=== PATIENT | female | born 1970 | race Asian ===

== ENCOUNTER 2017-08-15 04:06 | Inpatient (IN) | payer MEDICAID ==
[~2017-08-15] VITALS: Ht 165.1 cm; Wt 65.8 kg
[2017-08-15] MEDS ORDERED: diphenhydrAMINE HCL 50 MG/ML VIAL ONE (04:12)
[2017-08-15] MEDS ORDERED: HALOPERIDOL LACTATE INJ 5 MG/ML VIAL ONE (04:12)
[2017-08-15] MEDS ORDERED: LORAZEPAM INJ 2 MG/ML VIAL ONE ×2 (04:12→05:23)
[2017-08-15] MEDS ORDERED: LORAZEPAM INJ 2 MG/ML VIAL IM ONE (04:30)
[2017-08-15] MEDS ORDERED: diphenhydrAMINE HCL 50 MG/ML VIAL IM ONE (04:30)
[2017-08-15] MEDS ORDERED: HALOPERIDOL LACTATE INJ 5 MG/ML VIAL IM ONE (04:30)
--- NOTE | 2017-08-15 04:30 | NUR ---
PT TO ER BED 6. PT BIB [facility] AND [employer] FOR "BIZARRE BEHAVIOR" PER EMS. PT PLACED ON STEAM SERVICE INSPECTOR. VSS/RESP EVEN UNLABORED/NAD NOTED/SKIN WARM AND DRY. MD AT BEDSIDE FOR EVAL.
--- NOTE | 2017-08-15 04:35 | NUR ---
18G IV TO R AC USING ASEPTIC TECH, BLOOD HANDED OVER TO THE LAB AT BEDSIDE.
[2017-08-15 04:48] LABS: BASOPHILS % (AUTO) 0.2 % (0.0-2.0); EOSINOPHILS % (AUTO) 0.1 % (0.0-6.0); HEMATOCRIT 21 % (33-45); HEMOGLOBIN 7.2 g/dL (11.5-14.8); LYMPHOCYTES # (AUTO) 1.2 /CMM (0.8-4.8); LYMPHOCYTES % (AUTO) 14.1 % (20.0-44.0); MEAN CORPUSCULAR HEMOGLOBIN 29 PG (26.0-33.0); MEAN CORPUSCULAR HGB CONC 35 g/dl (31.0-36.0); MEAN CORPUSCULAR VOLUME 83 fL (82-100); MONOCYTES # (AUTO) 0.5 /CMM (0.1-1.30); MONOCYTES % (AUTO) 6.3 % (2.0-12.0); NEUTROPHILS # (AUTO) 6.5 /CMM (1.8-8.9); NEUTROPHILS % (AUTO) 79.3 % (43.0-81.0); PLATELET COUNT (AUTO) 403 /CMM (150-450); RDW COEFFICIENT OF VARIATION 16.5 (11.5-15.0); RED BLOOD CELL COUNT(AUTO) 2.47 MIL/uL (4.0-5.2); WHITE BLOOD COUNT (AUTO) 8.2 K/uL (4.3-11.0)
--- NOTE | 2017-08-15 05:00 | NUR ---
AT BEDSIDE SPEAKING WITH THE FAMILY. SONU.
[2017-08-15 05:04] LABS: ALANINE AMINOTRANSFERASE 36 U/L (12-78); ALBUMIN 3.9 g/dL (3.4-5.0); ALCOHOL, BLOOD < 3 mg/dL (0-0); ALKALINE PHOSPHATASE 47 U/L (46-116); ASPARTATE AMINOTRANSFERASE 32 U/L (15-37); BILIRUBIN,TOTAL 0.1 mg/dL (0.2-1.0); CARBON DIOXIDE 21 mmol/L (21-32); CHLORIDE 103 mmol/L (98-107); CREATININE 0.9 mg/dL (0.6-1.3); GLUCOSE 183 mg/dL (74-106); SODIUM SERUM 140 mmol/L (136-145); TOTAL PROTEIN, SERUM 7.4 g/dL (6.4-8.2); UREA NITROGEN, BLOOD 11 mg/dL (7-18)
[2017-08-15 05:05] LABS: INR 0.93 (0.87-1.13); PROTHROMBIN TIME 9.7 SECS (9.5-12.7); TROPONIN I 0.067 ng/mL (0.00-0.056)
[2017-08-15 05:06] LABS: ACETAMINOPHEN 0 ug/ml (10-30); SALICYLATE 1.3 mg/dL (2.8-20.0); SERUM AMMONIA < 10 umol/L (11-32)
[2017-08-15 05:11] LABS: CREATINE KINASE, TOTAL 288 U/L (26-192); THYROID STIMULATING HORMONE 1.641 uIU/mL (0.358-3.74)
--- NOTE | 2017-08-15 05:27 | NUR ---
ATIVAN 1MG GIVEN AT THIS TIME PER DR JAIME VERBAL ORDERS.
[2017-08-15] MEDS ORDERED: IV NS 0.9% 1,000 ML BAG IV ONE ×2 (05:30→09:00)
[2017-08-15] MEDS ORDERED: ASPIRIN 300 MG/SUPP.RECT RC ONE ×2 (05:30→05:52)
[2017-08-15] MEDS ORDERED: LORAZEPAM INJ 2 MG/ML VIAL IV ONE ×2 (05:30→07:30)
[2017-08-15 05:44] LABS: CREATINE KINASE MB 1.3 ng/mL (0-3.6)
--- NOTE | 2017-08-15 06:00 | NUR ---
SECOND ATIVAN 1MG GIVEN SLOW IVP PER DR JAIME'S VEBAL ORDER.
[2017-08-15 06:01] LABS: APPEARANCE,URINE CLEAR (CLEAR); BILIRUBIN,URINE NEGATIVE (NEGATIVE); BLOOD, URINE TRACE-INTA Ery/uL (NEGATIVE); KETONES,URINE TRACE (NEGATIVE); LEUKOCYTE ESTERASE ,URINE NEGATIVE (NEGATIVE); NITRITE, URINE NEGATIVE (NEGATIVE); PROTEIN,URINE NEGATIVE (NEGATIVE); UGLUCOSE NEGATIVE (NEGATIVE); UROBILINOGEN,URINE 0.2 EU/dL (0.2)
[2017-08-15 06:04] LABS: COLOR,URINE OTHER (YELLOW)
[2017-08-15 06:15] LABS: BACTERIA,URINE Few /HPF (None Seen); WBC,URINE 0-2 /HPF (0-3)
[2017-08-15 06:16] LABS: SQUAMOUS EPITHELIAL CELL,UR Few /HPF (None Seen)
--- NOTE | 2017-08-15 06:48 | NUR ---
PT RESTING QUIETLY. VSS/RESP EVEN UNLABORED. FAMILY AT BEDSIDE.
--- NOTE | 2017-08-15 07:30 | NUR ---
RECEIVED REPORT FOR MARCELL.
[2017-08-15] MEDS: POTASSIUM CL. PREMIX PERIPHER. 50 ML IV SCH ×2 (08:05→09:05)
[2017-08-15] MEDS ORDERED: Z GUARD REMEDY 2 OZ OINT TP PRN (09:00)
[2017-08-15] MEDS ORDERED: ONDANSETRON HCL/PF 4 MG/2 ML VIAL IVP PRN (09:00)
[2017-08-15] MEDS ORDERED: MAGNESIUM HYDROXIDE 30 ML UDC PO PRN (09:00)
[2017-08-15] MEDS ORDERED: HYDROCODONE/APAP 5/325MG 1 EACH TABLET PO PRN (09:00)
[2017-08-15] MEDS ORDERED: ACETAMINOPHEN 325 MG TABLET PO PRN (09:00)
[2017-08-15] MEDS ORDERED: MAG HYDROX/AL HYDROX/SIMETH 30 ML UDC PO PRN (09:00)
[2017-08-15] MEDS ORDERED: ZOLPIDEM TARTRATE 5 MG TABLET PO PRN (09:00)
[2017-08-15] MEDS ORDERED: CALC500T51 PO (09:44)
[2017-08-15] MEDS ORDERED: MIRT15TA7 PO (09:44)
[2017-08-15] MEDS ORDERED: LOSA1TAB39 PO (09:44)
[2017-08-15] MEDS ORDERED: AMLO5TAB2 PO (09:44)
[2017-08-15] MEDS ORDERED: ASCO500T9 PO (09:44)
[2017-08-15] MEDS ORDERED: FERR-58 PO (09:44)
[2017-08-15] MEDS ORDERED: CYAN500T4 PO (09:44)
--- NOTE | 2017-08-15 10:15 | NUR ---
3RD BAG OF POTASSIUM ADMINISTERED ON RAC, 18 G. INFUSING ON TRANSFER TO FLOOR.
--- NOTE | 2017-08-15 10:32 | NUR ---
REPORT GIVEN TO RN, AFSATU FOR MARCELL UPON ADMISSION.
--- NOTE | 2017-08-15 10:45 | NUR ---
PATIENT TRANSPORTED TO [facility] VIA ACLS PROTOCOL FOR ADMISSION. RN, AFSATU TO PROVIDE MARCELL.
--- NOTE | 2017-08-15 11:10 | NUR ---
PROCUREMENT CLERK OPENING NOTES RECEIVED PT FROM ER NURSE IN STABLE CONDITION. PT IS ASLEEP AT THE MOMENT A RESULT OF THE MEDICATIONS GIVEN IN THE ER. AT BEDSIDE. TELE LEADS PLACED. PT IS SR SINUS TACH ON THE MONITOR WITH A CURRENT HR OF 107. IV NOTED TO BE PATENT AND INTACT. WILL CONTINUE IV POTASSIUM INFUSION. BED IN LOW LOCKED POSITION, SIDE RAILS UP X3, CALL LIGHT WITHIN REACH. BED ALARM ON. WILL CONTINUE TO MONITOR.
[2017-08-15] MEDS: IV NS 0.9% 1,000 ML IV PRN (11:38)
[2017-08-15] MEDS: ENOXAPARIN SODIUM 40 MG/0.4 ML DISP.SYRIN SQ SCH (11:39)
[2017-08-15 12:58] VITALS: BP 99/72
[2017-08-15 16:00] VITALS: BP 100/66
--- NOTE | 2017-08-15 19:01 | NUR ---
RESTAURANT LINE COOK CLOSING NOTES PT REMAINS STABLE SINCE ADMISSION. ALL NEEDS MET DURING SHIFT AND ORDERS CARRIED OUT ACCORDINGLY. PT IS RESPONSIVE TO TOUCH AND IS ABLE TO STATE WHERE SHE IS AND HER NAME. SHE IS NON AGGRESSIVE AT THE MOMENT AND REMAINS CALM. FAMILY REMAINS AT BEDSIDE. WILL ENDORSE TO NIGHTSHIFT NURSE FOR MARCELL
--- NOTE | 2017-08-15 19:15 | NUR ---
TRANSPORTATION CONSULTANT OPENING NOTES RECEIVED PT ASLEEP. SON AT BEDSIDE. PT IS ASLEEP AT THIS TIME. PT APPEARS TO BE LETHARGIC. PT ON TELE MONITOR. WILL CONTINUE TO MONITOR PT. PT HAS IV AND IS PATENT AND INTACT. FLUIDS ARE BEING INFUSED WITH NS AT 75ML/HR. CALL LIGHT WITHIN PT'S REACH. BED KEPT IN LOW, LOCKED POSITION, AND SIDE RAILS X 2UP. WILL CONTINUE TO MONITOR PT.
[2017-08-15 20:00] VITALS: BP 107/66
[2017-08-15 21:00] VITALS: BP 156/66
[2017-08-16] VITALS (16 sets, daily range): BP systolic 91–138; BP diastolic 52–84
[2017-08-16] MEDS: IV NS 0.9% 1,000 ML IV PRN (00:43)
--- NOTE | 2017-08-16 04:30 | NUR ---
MUMTAZ SALINAS NOTES: R AC #20G WAS LEAKING. NEW IV STARTED ON L FOREARM #22G. Addendum: 08/16/17 at 0446 by MICHEL COATS RN THIS DOES NOT APPLY TO THIS PT. WRONG CHARTING. PLEASE DISREGARD.
--- NOTE | 2017-08-16 06:53 | NUR ---
HELPER DRIVER CLOSING NOTES: ALL NEEDS WERE ATTENDED AND ANTICIPATED FOR. PT ASLEEP AT BED AT THIS TIME. PT STILL APPEARS TO BE LETHARGIC. SON AT BEDSIDE. PT ON TELE MONITOR. READING SHOWS SR 97. PT HAS IV AND IS PATENT AND INTACT. FLUIDS ARE BEING INFUSED WITH NS AT 75ML/HR. CALL LIGHT WITHIN PT'S REACH. BED KEPT IN LOW, LOCKED POSITION, AND SIDE RAILS X 2UP. WILL ENDORSE TO AM NURSE FOR MARCELL.
[2017-08-16 07:26] LABS: CALCIUM, SERUM 7.8 mg/dL (8.5-10.1); CREATININE 0.6 mg/dL (0.6-1.3); MAGNESIUM 2.1 mg/dL (1.8-2.4); PHOSPHORUS 2.9 mg/dL (2.5-4.9); POTASSIUM 3.4 mmol/L (3.5-5.1)
--- NOTE | 2017-08-16 08:15 | NUR ---
INFORMATION BROKER NOTES PATIENT IN BED, AWAKE, A/O X2. SINUS RHYTHM HR 96 ON THE TELE MONITOR. ON ROOM AIR, TOLERATING WELL, NO SOB. IVC IN RIGHT AC G 18 PATENT AND INTACT, IVF NS INFUSING AT 75ML/HR. CALL LIGHT WITHIN REACH. WILL CONT TO MONITOR.
[2017-08-16] MEDS: ENOXAPARIN SODIUM 40 MG/0.4 ML DISP.SYRIN SQ SCH (10:14)
[2017-08-16] MEDS ORDERED: POTASSIUM CHLORIDE 20 MEQ TAB.PRT.SR PO SCH (11:30)
[2017-08-16 12:18] LABS: BASOPHILS % (AUTO) 0.4 % (0.0-2.0); EOSINOPHILS % (AUTO) 0.3 % (0.0-6.0); LYMPHOCYTES # (AUTO) 1.8 /CMM (0.8-4.8); LYMPHOCYTES % (AUTO) 22.6 % (20.0-44.0); MEAN CORPUSCULAR HEMOGLOBIN 28 PG (26.0-33.0); MEAN CORPUSCULAR HGB CONC 33 g/dl (31.0-36.0); MEAN CORPUSCULAR VOLUME 85 fL (82-100); MONOCYTES # (AUTO) 0.6 /CMM (0.1-1.30); MONOCYTES % (AUTO) 7.8 % (2.0-12.0); NEUTROPHILS # (AUTO) 5.7 /CMM (1.8-8.9); NEUTROPHILS % (AUTO) 68.9 % (43.0-81.0); PLATELET COUNT (AUTO) 297 /CMM (150-450); RDW COEFFICIENT OF VARIATION 16.8 (11.5-15.0); RED BLOOD CELL COUNT(AUTO) 2.15 MIL/uL (4.0-5.2); WHITE BLOOD COUNT (AUTO) 8.1 K/uL (4.3-11.0)
[2017-08-16 12:22] LABS: HEMATOCRIT 18 % (33-45)
[2017-08-16 12:48] LABS: LYMPHOCYTES % (MANUAL) 22 % (16-48); MONOCYTES % (MANUAL) 8 % (0-11.0); NEUTROPHILS % (MANUAL) 70 (42-76)
[2017-08-16] MEDS: ASCORBIC ACID 500 MG TABLET PO SCH (16:36)
[2017-08-16] MEDS: CALCIUM CARBONATE (1250) 500 MG TABLET PO SCH (16:36)
--- NOTE | 2017-08-16 18:35 | NUR ---
VS TAKEN AND RECORDED, STARTED ON BLOOD TRANSFUSION FIRST UNIT PRBC, WILL MONITOR PATIENT CLOSELY.
--- NOTE | 2017-08-16 18:50 | NUR ---
BLOOD TRANSFUSION IN PROGRESS, VS TAKEN AND RECORDED, PATIENT APPEARS COMFORTABLE, NO C/O ANY DISCOMFORT, DENIES CHEST PAIN, AFEBRILE. CALL LIGHT WITHIN REACH. WILL CONT TO MONITOR CLOSELY.
--- NOTE | 2017-08-16 19:07 | NUR ---
RN NOTE FIRST PACK OF RBC DONE INFUSING, PT IN NO ACUTE DISTRESS, NO SOB & AFEBRILE. WILL CONTINUE TO MONITOR PATIENT.
--- NOTE | 2017-08-16 19:30 | NUR ---
MS RN CLOSING NOTES PATIENT IN BED, A/O X3. BLOOD TRANSFUSION PRBC FIRST UNIT STILL ON PROGRESS WITH NO S/S OF ADVERSE SIDE EFFECT, VS REMAINS STABLE. NO C/O OF BACK PAIN, AFEBRILE. POTASSIUM CHLORIDE SUPPLEMENTED TODAY. CALL LIGHT WITHIN REACH, AT THE BEDSIDE. ENDORSED TO SCREW MACHINE HAND RN FOR MARCELL.
--- NOTE | 2017-08-16 19:35 | NUR ---
RN OPENING NOTES RECEIVED PATIENT IN BED, AWAKE, ALERT AND VERBALLY RESPONSIVE, NO SOB NOTED, BREATHING EVEN AND UNLABORED, NO C/O PAIN AND IN NO ACUTE DISTRESS. PATIENT RECEIVING BLOOD TRANSFUSION, TOLERATING WELL, V/S WNL. PATIENT'S SPOUSE AT BEDSIDE. ALL PATIENT'S NEEDS ATTENDED TO, CALL LIGHT PLACED WITHIN EASY REACH. WILL CONTINUE TO MONITOR.
[2017-08-16] MEDS ORDERED: MIRTAZAPINE 15 MG TABLET PO SCH (22:00)
--- NOTE | 2017-08-16 22:33 | NUR ---
RN NOTE PATIENT'S VS TAKEN AND RECORDED, STARTED BLOOD TRANSFUSION OF SECOND UNIT PRBC, WILL CONTINUE TO MONITOR PATIENT.
--- NOTE | 2017-08-17 | NUR ---
RN NOTE PATIENT CONTINUES TO RECEIVE PRBC, NO ADVERSE REACTION NOTED AT THIS TIME, AFEBRILE, NO SOB, NO ITCHING, NO RASHES. VS WNL, WILL CONTINUE TO MONITOR.
[2017-08-17 00:30] VITALS: BP 110/77
[2017-08-17 01:00] VITALS: BP 115/74
[2017-08-17 01:30] VITALS: BP 127/80
--- NOTE | 2017-08-17 01:46 | NUR ---
RN NOTE SECOND BAG OF PRBC INFUSION ENDED, PATIENT'S VS WNL, PATIENT ASLEEP BUT EASILY AROUSABLE, IN NO ACUTE DISTRESS, WILL CONTINUE TO MONITOR.
[2017-08-17] MEDS: IV NS 0.9% 1,000 ML IV PRN (03:23)
[2017-08-17 06:00] VITALS: BP 116/76
[2017-08-17 07:17] LABS: CALCIUM, SERUM 8.4 mg/dL (8.5-10.1); CREATININE 0.6 mg/dL (0.6-1.3)
[2017-08-17 07:26] LABS: POTASSIUM 3.5 mmol/L (3.5-5.1)
--- NOTE | 2017-08-17 07:40 | NUR ---
RN CLOSING NOTES PATIENT IN BED, AWAKE AND VERBALLY RESPONSIVE, ORIENTED X 4, ABLE TO MAKE NEEDS KNOWN WITH NO C/O PAIN AT THIS TIME, NO SOB, BREATHING EVEN AND UNLABORED, O2 SAT @98% IN ROOM AIR, IN NO ACUTE DISTRESS. ALL PATIENT'S NEEDS ATTENDED TO, CALL LIGHT PLACED WITHIN EASY REACH. CONTINUES TO RECEIVE IV HYDRATION ORDERED ON LAC IV PERIPHERAL LINE. G18.
--- NOTE | 2017-08-17 07:45 | NUR ---
MS RN OPENING NOTE RECEIVED BEDSIDE SBAR REPORT ON THE PATIENT. PATIENT IS A/O X4, AWAKE AND RESPONSIVE TO NAME AND TOUCH. PATIENT IS IN BED. BED IS LOCKED IN LOWEST POSITION, SIDE RAILS UP X3, BED ALARM IS ON. CALL LIGHT WITHIN REACH. EDUCATED TO USE THE CALL LIGHT TO CALL FOR ASSISTANCE. PATIENT'S AT THE BEDSIDE. PATIENT DENIES PAIN/DISCOMFORT AT THIS TIME. CHEST IS RISING EQUALLY BILATERALLY. SPO2 100% ON RA. ALL NEEDS ARE MET AT THIS TIME. WILL CONTINUE TO ASSESS/MONITOR THROUGHOUT THE SHIFT.
[2017-08-17] MEDS ORDERED: FERROUS SULFATE (325 MG) 325 MG/TAB TABLET PO SCH (09:00)
[2017-08-17] MEDS ORDERED: CYANOCOBALAMIN 500 MCG TABLET PO SCH (09:00)
[2017-08-17] MEDS: ENOXAPARIN SODIUM 40 MG/0.4 ML DISP.SYRIN SQ SCH (09:00)
[2017-08-17] MEDS ORDERED: AMLODIPINE BESYLATE 5 MG TABLET PO SCH (09:00)
[2017-08-17] MEDS: ASCORBIC ACID 500 MG TABLET PO SCH ×2 (09:59→17:40)
[2017-08-17] MEDS: CALCIUM CARBONATE (1250) 500 MG TABLET PO SCH ×2 (09:59→17:40)
--- NOTE | 2017-08-17 10:08 | NUR ---
PATIENT REFUSED LOVENOX
[2017-08-17 13:25] LABS: BASOPHILS % (AUTO) 0.5 % (0.0-2.0); EOSINOPHILS # (AUTO) 0.1 /CMM (0.0-0.7); EOSINOPHILS % (AUTO) 1.4 % (0.0-6.0); HEMATOCRIT 25 % (33-45); HEMOGLOBIN 8.5 g/dL (11.5-14.8); LYMPHOCYTES # (AUTO) 1.8 /CMM (0.8-4.8); LYMPHOCYTES % (AUTO) 24.9 % (20.0-44.0); MEAN CORPUSCULAR HEMOGLOBIN 29 PG (26.0-33.0); MEAN CORPUSCULAR HGB CONC 34 g/dl (31.0-36.0); MEAN CORPUSCULAR VOLUME 87 fL (82-100); MONOCYTES # (AUTO) 0.6 /CMM (0.1-1.30); MONOCYTES % (AUTO) 7.9 % (2.0-12.0); NEUTROPHILS # (AUTO) 4.7 /CMM (1.8-8.9); NEUTROPHILS % (AUTO) 65.3 % (43.0-81.0); PLATELET COUNT (AUTO) 313 /CMM (150-450); RDW COEFFICIENT OF VARIATION 17.4 (11.5-15.0); RED BLOOD CELL COUNT(AUTO) 2.93 MIL/uL (4.0-5.2); WHITE BLOOD COUNT (AUTO) 7.2 K/uL (4.3-11.0)
[2017-08-17 16:00] VITALS: BP 140/88
--- NOTE | 2017-08-17 19:44 | NUR ---
MS RN CLOSING NOTE GAVE BEDSIDE SBAR REPORT ON THE PATIENT. PATIENT IS A/O X4, AWAKE AND RESPONSIVE TO NAME AND TOUCH. PATIENT IS IN BED. BED IS LOCKED IN LOWEST POSITION, SIDE RAILS UP X3, BED ALARM IS ON. CALL LIGHT WITHIN REACH. EDUCATED TO USE THE CALL LIGHT TO CALL FOR ASSISTANCE. PATIENT'S AT THE BEDSIDE. PATIENT DENIES PAIN/DISCOMFORT AT THIS TIME. CHEST IS RISING EQUALLY BILATERALLY. SPO2 100% ON RA. ALL NEEDS ARE MET AT THIS TIME. DISCHARGE EXITCARE COMPLETED. ENDORSED TO THE DECORATOR CONSULTANT RN FOR MARCELL/DISCHARGE.
--- NOTE | 2017-08-17 20:30 | NUR ---
MS RN NOTES RECIVED SITTING COMFORTABLY ON BED,WITH FAMILY MEMBERS AT BEDSIDE,WAITING TO BE DISCHARGE.
--- NOTE | 2017-08-17 20:40 | NUR ---
MS RN NOTES DISCHARGED HOME ACCOMPANIED BY FAMILY MEMBER,HOME MEDS GIVEN,D/C INSTRUCTION AND ALL PAPER WORKS PROVIDED.IN STABLE CONDITION.
== END 2017-08-17 20:40 | disposition home or self-care (01) | DRG 351 ==
LOC: ER 04:07 → TELE 10:15 → MED 08-16 15:33
PROVIDERS: ADMIT Internal Medicine; ATTEND Internal Medicine
PROC: 30233N1 Transfusion of Nonautologous Red Blood Cells into Peripheral Vein, Percutaneous Approach (ICD-10-PCS; principal; 2017-08-16)
DX: M62.82 Rhabdomyolysis (principal); I21.4 Non-ST elevation (NSTEMI) myocardial infarction; N28.1 Cyst of kidney, acquired; I10 Essential (primary) hypertension; E78.5 Hyperlipidemia, unspecified; E86.0 Dehydration; E87.6 Hypokalemia; D64.9 Anemia, unspecified; K21.9 Gastro-esophageal reflux disease without esophagitis; Z79.899 Other long term (current) drug therapy; F29 Unspecified psychosis not due to a substance or known physiological condition; N92.1 Excessive and frequent menstruation with irregular cycle
CPT/HCPCS: 36415; 70450-TC; 71045; 80048-TC; 80061-TC; 80076-TC; 80305; 81000-TC; 82140-TC; 82550-TC; 82553-TC; 82962-TC; 83735-TC; 84100-TC; 84443-TC; 84484-TC; 85025-TC; 85730-TC; 86850-TC; 86921-TC; 87081-TC; 93307-TC; A4606; G0480; J1200; J1630; J1650; J2060; J3480; J7030; J7040; J7050; P9016-BL; Z7610

== ENCOUNTER 2017-08-22 01:32 | Inpatient (IN) | payer MEDICAID ==
[~2017-08-22] VITALS: Ht 162.6 cm; Wt 56.7 kg
[~2017-08-22 01:32] MED LIST: AMLO5TAB2 PO; ASCO500T9 PO; CALC500T51 PO; CYAN500T4 PO; FERR-58 PO; LOSA1TAB39 PO; MIRT15TA7 PO
--- NOTE | 2017-08-22 01:44 | NUR ---
PT TO ER BED 8. PT BIB FAMILY FOR BEHAVIORAL;PT JUST D/C FROM HERE FEW DAYS AGO FOR SAME PROBLEM. PT YELLING "THEY ARE GOING TO KILL ME". FAMILY AT BEDSIDE. PT PLACED ON RAMP ATTENDANT. VSS/RESP EVEN UNLABORED/NAD NOTED/SKIN WARM AND DRY/AOX4. AWAITING MD MCKNIGHT.
[2017-08-22] MEDS ORDERED: OLANZAPINE 10 MG VIAL IM ONE ×4 (01:53→13:11)
--- NOTE | 2017-08-22 02:00 | NUR ---
PT PLACED IN MEDICAL RESTRAINTS 2 POINT PER MD ORDERS.
--- NOTE | 2017-08-22 02:05 | NUR ---
LAB AT THE BEDSIDE FOR DRAW.
[2017-08-22 02:19] LABS: BASOPHILS % (AUTO) 0.4 % (0.0-2.0); EOSINOPHILS % (AUTO) 0.6 % (0.0-6.0); HEMATOCRIT 30 % (33-45); HEMOGLOBIN 10.3 g/dL (11.5-14.8); LYMPHOCYTES # (AUTO) 1.8 /CMM (0.8-4.8); MEAN CORPUSCULAR HEMOGLOBIN 29 PG (26.0-33.0); MEAN CORPUSCULAR HGB CONC 34 g/dl (31.0-36.0); MEAN CORPUSCULAR VOLUME 85 fL (82-100); MONOCYTES # (AUTO) 0.8 /CMM (0.1-1.30); MONOCYTES % (AUTO) 9.1 % (2.0-12.0); NEUTROPHILS # (AUTO) 6.2 /CMM (1.8-8.9); NEUTROPHILS % (AUTO) 69.9 % (43.0-81.0); PLATELET COUNT (AUTO) 350 /CMM (150-450); RDW COEFFICIENT OF VARIATION 16.9 (11.5-15.0); RED BLOOD CELL COUNT(AUTO) 3.52 MIL/uL (4.0-5.2); WHITE BLOOD COUNT (AUTO) 8.9 K/uL (4.3-11.0)
[2017-08-22 02:34] LABS: ALANINE AMINOTRANSFERASE 37 U/L (12-78); ALBUMIN 3.9 g/dL (3.4-5.0); ALKALINE PHOSPHATASE 58 U/L (46-116); ASPARTATE AMINOTRANSFERASE 25 U/L (15-37); BILIRUBIN,TOTAL 0.2 mg/dL (0.2-1.0); CALCIUM, SERUM 8.9 mg/dL (8.5-10.1); CARBON DIOXIDE 23 mmol/L (21-32); CHLORIDE 102 mmol/L (98-107); CREATININE 0.7 mg/dL (0.6-1.3); GLUCOSE 180 mg/dL (74-106); POTASSIUM 3.2 mmol/L (3.5-5.1); SODIUM SERUM 140 mmol/L (136-145); TOTAL PROTEIN, SERUM 7.7 g/dL (6.4-8.2); UREA NITROGEN, BLOOD 8 mg/dL (7-18)
[2017-08-22 02:35] LABS: ALCOHOL, BLOOD < 3 mg/dL (0-0)
[2017-08-22 02:36] LABS: ACETAMINOPHEN 0 ug/ml (10-30)
--- NOTE | 2017-08-22 03:11 | NUR ---
18 FR WILLARD STRAIGHT CATH INSERTED USING ENAMEL DRIER. URINE SPECIMAN OBTAINED AND SENT TO THE LAB. CATH D/C'D.
[2017-08-22] MEDS ORDERED: LORAZEPAM 1 MG TABLET PO ONE (03:30)
[2017-08-22 03:54] LABS: APPEARANCE,URINE CLEAR (CLEAR); BILIRUBIN,URINE NEGATIVE (NEGATIVE); BLOOD, URINE 1+ Ery/uL (NEGATIVE); COLOR,URINE YELLOW (YELLOW); KETONES,URINE NEGATIVE (NEGATIVE); LEUKOCYTE ESTERASE ,URINE TRACE (NEGATIVE); NITRITE, URINE NEGATIVE (NEGATIVE); PROTEIN,URINE NEGATIVE (NEGATIVE); UGLUCOSE NEGATIVE (NEGATIVE); UROBILINOGEN,URINE 0.2 EU/dL (0.2)
[2017-08-22 03:59] LABS: BACTERIA,URINE None seen /HPF (None Seen); SQUAMOUS EPITHELIAL CELL,UR Few /HPF (None Seen); WBC,URINE 0-2 /HPF (0-3)
[2017-08-22] MEDS ORDERED: LORAZEPAM INJ 2 MG/ML VIAL ONE ×2 (03:59→11:21)
[2017-08-22] MEDS ORDERED: LORAZEPAM INJ 2 MG/ML VIAL IM ONE (04:00)
--- NOTE | 2017-08-22 04:04 | NUR ---
PT CONTINUES TO RAMBLE INCOHERENT TALK. AT BEDSIDE. RN TO CONTINUE TO MONITOR PROVIDING SAFETY/COMFORT MEASURES.
--- NOTE | 2017-08-22 05:01 | NUR ---
PT REDUCED DOWN TO ONE POINT RESTRAINT, LEFT ARM ONLY.
--- NOTE | 2017-08-22 05:25 | NUR ---
MEDICAL RESTRAINTS D/C PER MD ORDERS.
--- NOTE | 2017-08-22 07:15 | NUR ---
AT BEDSIDE. PT RESTING QUIETLY, VSS/RESP EVEN UNLABORED.
--- NOTE | 2017-08-22 07:24 | NUR ---
REPORT GIVEN TO BRAD ORELLANA FOR MARCELL.
--- NOTE | 2017-08-22 08:09 | NUR ---
CALLED ART TOBACCO WAREHOUSE AGENT FOR PSYCH EVAL
--- NOTE | 2017-08-22 09:30 | NUR ---
ART AT BEDSIDE
--- NOTE | 2017-08-22 10:00 | NUR ---
PATIENT ON BED,.IN NO APPARENT DISTRESS WITH EPISODE OF CONFUSION,.PT REMAINS CONNECTED TO TELE MONITOR. VSS
--- NOTE | 2017-08-22 10:40 | NUR ---
DR. MCCLELLAN AT BEDSIDE
[2017-08-22] MEDS ORDERED: FOLI1TAB16 PO (10:41)
[2017-08-22] MEDS ORDERED: AMYL1CAP58 PO (10:41)
--- NOTE | 2017-08-22 11:18 | NUR ---
DR. MEDINA AT BEDSIDE. PATIENT STARTED CRYING AND REFUSED TO ANSWER ANY QUASTION FROM MD. A VERBAL ORDER FROM DR. MEDINA TO GIVE ATIVAN 1MG IVP SAT. MD SIGNED ORDER SHEET. LORAZEPAM 1MG IVP GIVEN.
--- NOTE | 2017-08-22 13:14 | NUR ---
PER RAY HOLD OFF TO ZYPREXA AT THIS TIME, PATIENT ASLEEP.
--- NOTE | 2017-08-22 13:37 | NUR ---
CALLED FOR FOOD TRAY
[2017-08-22] MEDS ORDERED: ZOLPIDEM TARTRATE 5 MG TABLET PO PRN (14:30)
[2017-08-22] MEDS ORDERED: Z GUARD REMEDY 2 OZ OINT TP PRN (14:30)
[2017-08-22] MEDS ORDERED: IV NS 0.9% 1,000 ML IV PRN (14:30)
[2017-08-22] MEDS ORDERED: HYDROCODONE/APAP 5/325MG 1 EACH TABLET PO PRN (14:30)
[2017-08-22] MEDS ORDERED: ONDANSETRON HCL/PF 4 MG/2 ML VIAL IVP PRN (14:30)
[2017-08-22] MEDS ORDERED: ACETAMINOPHEN 325 MG TABLET PO PRN (14:30)
[2017-08-22] MEDS ORDERED: MAG HYDROX/AL HYDROX/SIMETH 30 ML UDC PO PRN (14:30)
[2017-08-22] MEDS ORDERED: MAGNESIUM HYDROXIDE 30 ML UDC PO PRN (14:30)
--- NOTE | 2017-08-22 14:48 | NUR ---
PT TRANSPORTED TO OR,. VSS
--- NOTE | 2017-08-22 15:00 | NUR ---
RN NOTES PATIENT RECEIVED FROM [facility]. DEPT. ALERT AND ORIENTED X3, CALM AND COOPERATIVE AT THIS TIME, NO DISTRESS NOTED. ORDER FROM DR. MEDINA IS TELEMETRY. NURSING LATIN PROFESSOR MADE AWARE. PATIENT WILL BE TRANSFERRED TO TELEMETRY, AWAITING FOR BED.
--- NOTE | 2017-08-22 16:28 | NUR ---
RN NOTES PATIENT WILL BE TRANSFERRED TO ROOM 310-1. WILL GIVE REPORT TO RN.
--- NOTE | 2017-08-22 17:01 | NUR ---
RN NOTES PATIENT TRANSFERRED TO ROOM 310-2, REPORT GIVEN TO TACO SALINAS.
[2017-08-22] MEDS: POTASSIUM CL. PREMIX PERIPHER. 50 ML IV SCH ×3 (17:30→20:51)
--- NOTE | 2017-08-22 17:45 | NUR ---
RN OPENING NOTES RECEIVED PATIENT IN STABLE CONDITION TO ROOM 310-2. REPORT RECEIVED FROM BRAD CALDWELL. NO ACUTE DISTRESS. RESPIRATIONS EVEN AND UNLABORED. IV ACCESS PATENT AND INTACT. BED LOCKED IN THE LOWEST POSITION WITH SIDE RAILS UP X2. CALL LIGHT WITHIN REACH. WILL CONTINUE TO MONITOR, ASSESS AND EDUCATE PATIENT THROUGHOUT SHIFT.
--- NOTE | 2017-08-22 19:30 | NUR ---
CERTIFIED PEDORTHOTIST NOTE RECEIVED PATIENT ASLEEP IN BED. EASILY AROUSABLE. DENIES ANY PAIN OR DISCOMFORT AT THIS TIME. SON AND AT BEDSIDE. IV SITE INTACT, WITH FLUIDS RUNNING ORDERED. BED LOCKED AND IN LOWEST POSITION. SIDE RAILS UP, CALL LIGHT WITHIN REACH. WILL CONTINUE TO MONITOR.
--- NOTE | 2017-08-22 19:45 | NUR ---
RN CLOSING NOTES PATEITN CONDITION REMAINS UNCHANGED. NO ACUTE DISTRESS. RESPIRATIONS EVEN AND UNLABORED. DENIES ANY PAIN, CP OR SOB. WILL ENDORSE TO NIGHT RN FOR MARCELL.
[2017-08-22 20:00] VITALS: BP 131/81
[2017-08-22] MEDS: CALCIUM CARBONATE (1250) 500 MG TABLET PO SCH (20:47)
[2017-08-22] MEDS: LIPASE/PROTEASE/AMYLASE 1 EACH CAPSULE.DR PO SCH (20:48)
[2017-08-22 22:00] VITALS: BP 131/81
[2017-08-22] MEDS ORDERED: MIRTAZAPINE 15 MG TABLET PO SCH (22:00)
[2017-08-22 23:59] VITALS: BP 125/77
[2017-08-23] MEDS: POTASSIUM CL. PREMIX PERIPHER. 50 ML IV SCH (00:29)
[2017-08-23 04:00] VITALS: BP 133/80
--- NOTE | 2017-08-23 06:22 | NUR ---
COMMISSARY WORKER NOTE PATIENT CONDITION REMAINS UNCHANGED. NO ACUTE DISTRESS. RESPIRATIONS EVEN AND UNLABORED. DENIES ANY PAIN, CP OR SOB. WILL ENDORSE TO DAY RN FOR MARCELL.
[2017-08-23 07:02] VITALS: BP 125/73
--- NOTE | 2017-08-23 07:20 | NUR ---
SIFTER OPERATOR/RN NOTES PT.'S TELE READING IS SINUS RHYTHM 84 BPM.
--- NOTE | 2017-08-23 07:30 | NUR ---
PHYSICIST ACOUSTICS/RN NOTES RECEIVED PT. IN BED SLEEPING, EASILY WAKES UP TO HER NAME. PT. IS A&OX3. BREATHING UNLABORED, AND EVENLY ON ROOM AIR. NO S/S OF ACUTE DISTRESS. IV FLUIDS RUNNING AT 75 ML/HR. BED IS IN LOWEST AND LOCKED POSITION. 2 SIDE RAILS UP, AND INSTRUCTED PT. TO USE CALL LIGHT FOR ASSISTANCE. ALL NEEDS MET. WILL CONTINUE TO ASSESS AND MONITOR.
[2017-08-23] MEDS: LIPASE/PROTEASE/AMYLASE 1 EACH CAPSULE.DR PO SCH ×3 (08:00→13:44)
--- NOTE | 2017-08-23 08:00 | NUR ---
RN NOTES PT. IS NPO DUE TO SCHEDULED CT SCAN THIS MORNING. MEDICATION WAS NOT ADMINISTERED DUE TO MEDICATIONS MUST BE TAKEN WITH MEALS.
[2017-08-23 08:29] LABS: BASOPHILS % (AUTO) 0.2 % (0.0-2.0); EOSINOPHILS # (AUTO) 0.1 /CMM (0.0-0.7); EOSINOPHILS % (AUTO) 0.8 % (0.0-6.0); HEMATOCRIT 27 % (33-45); HEMOGLOBIN 9.3 g/dL (11.5-14.8); LYMPHOCYTES # (AUTO) 1.4 /CMM (0.8-4.8); LYMPHOCYTES % (AUTO) 15.5 % (20.0-44.0); MEAN CORPUSCULAR HEMOGLOBIN 30 PG (26.0-33.0); MEAN CORPUSCULAR HGB CONC 34 g/dl (31.0-36.0); MEAN CORPUSCULAR VOLUME 88 fL (82-100); MONOCYTES # (AUTO) 0.7 /CMM (0.1-1.30); NEUTROPHILS # (AUTO) 6.9 /CMM (1.8-8.9); NEUTROPHILS % (AUTO) 75.5 % (43.0-81.0); PLATELET COUNT (AUTO) 256 /CMM (150-450); RED BLOOD CELL COUNT(AUTO) 3.08 MIL/uL (4.0-5.2); WHITE BLOOD COUNT (AUTO) 9.2 K/uL (4.3-11.0)
[2017-08-23 08:36] LABS: INR 0.94 (0.87-1.13); PROTHROMBIN TIME 9.8 SECS (9.5-12.7)
[2017-08-23 08:50] LABS: ALBUMIN 3.2 g/dL (3.4-5.0); BILIRUBIN,TOTAL 0.3 mg/dL (0.2-1.0); CALCIUM, SERUM 8.3 mg/dL (8.5-10.1); CREATININE 0.6 mg/dL (0.6-1.3); MAGNESIUM 2.2 mg/dL (1.8-2.4); PHOSPHORUS 3.4 mg/dL (2.5-4.9); POTASSIUM 4.2 mmol/L (3.5-5.1); TOTAL PROTEIN, SERUM 6.5 g/dL (6.4-8.2)
[2017-08-23 08:52] LABS: THYROID STIMULATING HORMONE 0.409 uIU/mL (0.358-3.74)
[2017-08-23] MEDS ORDERED: LOSARTAN POTASSIUM 50 MG TABLET PO SCH (09:00)
[2017-08-23] MEDS ORDERED: FERROUS SULFATE (325 MG) 325 MG/TAB TABLET PO SCH (09:00)
[2017-08-23] MEDS ORDERED: FOLIC ACID 1 MG TABLET PO SCH (09:00)
[2017-08-23] MEDS ORDERED: AMLODIPINE BESYLATE 5 MG TABLET PO SCH (09:00)
[2017-08-23] MEDS ORDERED: IV NS 0.9% 250 ML IV ONE (09:55)
[2017-08-23] MEDS ORDERED: IOHEXOL-300 100 ML VIAL IV ONE (09:55)
[2017-08-23] MEDS ORDERED: CT SWABBABLE VALVE TRANS SET 1 EA INFUS.SET MC ONE (09:55)
[2017-08-23] MEDS: CALCIUM CARBONATE (1250) 500 MG TABLET PO SCH (11:06)
[2017-08-23 16:00] VITALS: BP 100/59
--- NOTE | 2017-08-23 17:50 | NUR ---
MUSIC DIRECTOR PT. LEFT IN MEDICALLY STABLE CONDITION WITH ALONG SIDE. DISCHARGE INSTRUCTIONS PROVIDED WITH EDUCATION, PT. VERBALIZED UNDERSTANDING. ID BAND, AND IV WAS REMOVED WITHOUT COMPLICATIONS. BELONGINGS LIST WAS CHECKED AND SIGNED. PT. LEFT WITH DISCHARGE PACKET IN HAND. BEFORE LEAVING FLOOR PT. WAS PROVIDED PACKAGE DYEING MACHINE OPERATORKI CONTACT INFORMATION FOR FURTHER OUTSIDE SOCIAL RESOURCES.
== END 2017-08-23 17:49 | disposition home or self-care (01) | DRG 756 ==
LOC: ER 01:34 → TRANSITION 12:52 → TELE2 14:29 → TELE 18:50 → MED 08-23 09:12
PROVIDERS: ADMIT Internal Medicine; ATTEND Internal Medicine
DX: F43.0 Acute stress reaction (principal); M62.82 Rhabdomyolysis; E44.0 Moderate protein-calorie malnutrition; Z91.19 Patient's noncompliance with other medical treatment and regimen; E78.5 Hyperlipidemia, unspecified; E87.6 Hypokalemia; I10 Essential (primary) hypertension; Z79.899 Other long term (current) drug therapy; K21.9 Gastro-esophageal reflux disease without esophagitis; D25.9 Leiomyoma of uterus, unspecified; N92.0 Excessive and frequent menstruation with regular cycle; D50.9 Iron deficiency anemia, unspecified
CPT/HCPCS: 36415; 71045-TC; 74178; 80048-TC; 80053-TC; 80061-TC; 80076-TC; 80305; 81000-TC; 82384; 82728-TC; 82746; 83540-TC; 83735-TC; 84100-TC; 84443-TC; 85025-TC; 85730-TC; 86304; 87081-TC; G0480; J2060; J2405; J3480; J3490; J7030; J7050; Q9967; Z7610

== ENCOUNTER 2017-08-29 01:07 | Emergency (ER) | payer MEDICAID ==
[~2017-08-29] VITALS: Ht 165.1 cm; Wt 63.0 kg
[~2017-08-29 01:07] MED LIST changes: +AMYL1CAP58 PO; -ASCO500T9 PO; -CYAN500T4 PO; +FOLI1TAB16 PO
--- NOTE | 2017-08-29 01:10 | NUR ---
PT TO ER BED 9. PT BIBRA STATING PT "ACTING BIZARRE" X 5MG VERSED IN CAN TESTER. PT SEEN HERE IN THE ER FOR SAME REASON X LAST 3 SUNDAYS. PT PLACED IN GOWN AND ON RAIL DIRECTOR. VSS/RESP EVEN UNLABORED/NAD NOTED/SKIN WARM AND DRY/DENIES N-V-D/AOX2. AWAITING MD MCKNIGHT.
[2017-08-29 01:27] LABS: BASOPHILS % (AUTO) 0.1 % (0.0-2.0); EOSINOPHILS % (AUTO) 0.1 % (0.0-6.0); HEMATOCRIT 26 % (33-45); HEMOGLOBIN 8.8 g/dL (11.5-14.8); LYMPHOCYTES # (AUTO) 1.3 /CMM (0.8-4.8); LYMPHOCYTES % (AUTO) 11.5 % (20.0-44.0); MEAN CORPUSCULAR HEMOGLOBIN 29 PG (26.0-33.0); MEAN CORPUSCULAR HGB CONC 34 g/dl (31.0-36.0); MEAN CORPUSCULAR VOLUME 86 fL (82-100); MONOCYTES # (AUTO) 0.5 /CMM (0.1-1.30); MONOCYTES % (AUTO) 4.9 % (2.0-12.0); NEUTROPHILS # (AUTO) 9.3 /CMM (1.8-8.9); NEUTROPHILS % (AUTO) 83.4 % (43.0-81.0); PLATELET COUNT (AUTO) 429 /CMM (150-450); RDW COEFFICIENT OF VARIATION 17.1 (11.5-15.0); RED BLOOD CELL COUNT(AUTO) 3.01 MIL/uL (4.0-5.2); WHITE BLOOD COUNT (AUTO) 11.1 K/uL (4.3-11.0)
[2017-08-29] MEDS ORDERED: IV NS 0.9% 1,000 ML BAG IV ONE (01:30)
[2017-08-29 01:55] LABS: ALBUMIN 3.7 g/dL (3.4-5.0); BILIRUBIN,TOTAL 0.3 mg/dL (0.2-1.0); CALCIUM, SERUM 8.5 mg/dL (8.5-10.1); CREATININE 1.2 mg/dL (0.6-1.3); TOTAL PROTEIN, SERUM 7.2 g/dL (6.4-8.2)
[2017-08-29 01:57] LABS: POTASSIUM 2.7 mmol/L (3.5-5.1)
[2017-08-29] MEDS ORDERED: HALOPERIDOL LACTATE INJ 5 MG/ML VIAL ONE (01:58)
--- NOTE | 2017-08-29 01:58 | NUR ---
18G RIGHT AC IV STARTED, BLOOD SAMPLE OBTAINED AND SENT TO LAB. MEDICATED PT ORDERED
[2017-08-29] MEDS ORDERED: POTASSIUM CHLORIDE 10 MEQ/50 ML PREMIXED IVPB FOR PERIPHERAL LINE IV ONE (02:00)
[2017-08-29] MEDS ORDERED: HALOPERIDOL LACTATE INJ 5 MG/ML VIAL IM ONE (02:00)
--- NOTE | 2017-08-29 02:05 | NUR ---
pt medicated as ordered.
[2017-08-29] MEDS ORDERED: LORAZEPAM INJ 2 MG/ML VIAL ONE (02:12)
[2017-08-29 02:13] LABS: ACETAMINOPHEN 0 ug/ml (10-30); ALCOHOL, BLOOD < 3 mg/dL (0-0); SALICYLATE 1.1 mg/dL (2.8-20.0)
[2017-08-29] MEDS ORDERED: POTASSIUM CHLORIDE 20 MEQ POWDER PACKET PO ONE (02:30)
[2017-08-29] MEDS ORDERED: LORAZEPAM INJ 2 MG/ML VIAL IV ONE (02:30)
[2017-08-29] MEDS ORDERED: IV PREMIX D5 1/2NS + KCL 1,000 ML IV ONE (02:56)
[2017-08-29] MEDS ORDERED: MISCELLANEOUS MED 1 EA EA IV ONE (03:00)
--- NOTE | 2017-08-29 03:15 | NUR ---
16 FR IN AND OUT CATH INSERTED USING CHEMICAL SALES REPRESENTATIVE, 200ML CLEAR URINE OUTPUT. URINE SPECIMEN SENT TO THE LAB.
--- NOTE | 2017-08-29 03:51 | NUR ---
SON'S PHONE #[phone] 'S PHONE #[phone]
[2017-08-29 04:31] LABS: APPEARANCE,URINE CLEAR (CLEAR); BILIRUBIN,URINE NEGATIVE (NEGATIVE); BLOOD, URINE NEGATIVE Ery/uL (NEGATIVE); COLOR,URINE YELLOW (YELLOW); KETONES,URINE NEGATIVE (NEGATIVE); LEUKOCYTE ESTERASE ,URINE NEGATIVE (NEGATIVE); NITRITE, URINE NEGATIVE (NEGATIVE); PROTEIN,URINE NEGATIVE (NEGATIVE); UGLUCOSE NEGATIVE (NEGATIVE); UROBILINOGEN,URINE 0.2 EU/dL (0.2)
[2017-08-29 04:36] LABS: BASOPHILS % (AUTO) 0.3 % (0.0-2.0); HEMATOCRIT 25 % (33-45); HEMOGLOBIN 8.3 g/dL (11.5-14.8); LYMPHOCYTES # (AUTO) 1.6 /CMM (0.8-4.8); LYMPHOCYTES % (AUTO) 12.1 % (20.0-44.0); MEAN CORPUSCULAR HEMOGLOBIN 29 PG (26.0-33.0); MEAN CORPUSCULAR HGB CONC 33 g/dl (31.0-36.0); MEAN CORPUSCULAR VOLUME 87 fL (82-100); MONOCYTES # (AUTO) 0.8 /CMM (0.1-1.30); NEUTROPHILS # (AUTO) 10.5 /CMM (1.8-8.9); NEUTROPHILS % (AUTO) 81.6 % (43.0-81.0); PLATELET COUNT (AUTO) 391 /CMM (150-450); RED BLOOD CELL COUNT(AUTO) 2.88 MIL/uL (4.0-5.2); WHITE BLOOD COUNT (AUTO) 12.9 K/uL (4.3-11.0)
[2017-08-29 04:40] LABS: CALCIUM, SERUM 7.8 mg/dL (8.5-10.1); CARBON DIOXIDE 23 mmol/L (21-32); CHLORIDE 100 mmol/L (98-107); CREATININE 0.7 mg/dL (0.6-1.3); GLUCOSE 135 mg/dL (74-106); SODIUM SERUM 133 mmol/L (136-145); UREA NITROGEN, BLOOD 9 mg/dL (7-18)
--- NOTE | 2017-08-29 06:04 | NUR ---
PT RESTING QUIETLY, AROUSES TO VOICE. VSS/RESP EVEN UNLABORED.
--- NOTE | 2017-08-29 07:23 | NUR ---
REPORT GIVEN TO BRAD PRESTON FOR MARCELL.
--- NOTE | 2017-08-29 09:31 | NUR ---
susie sandy called for eval
--- NOTE | 2017-08-29 09:34 | NUR ---
asleep, easily arousable,denies any pain
--- NOTE | 2017-08-29 12:15 | NUR ---
DR GREER IN TO SEE PT. FAMILY AT BEDSIDE. FAMILY WILL TAKE PT HOME.
--- NOTE | 2017-08-29 12:28 | NUR ---
Patient discharged to home in stable condition. Written and verbal after care instructions given. Patient verbalizes understanding of instruction.IV removed. Catheter intact and site benign. Pressure and 4x4 applied to site. No bleeding noted.
[2017-08-29 12:30] VITALS: BP 103/70
== END 2017-08-29 12:34 | disposition home or self-care (01) ==
LOC: ER 01:08
DX: F29 Unspecified psychosis not due to a substance or known physiological condition (principal); R41.0 Disorientation, unspecified; E87.6 Hypokalemia; D64.9 Anemia, unspecified; E87.2 Acidosis; D25.9 Leiomyoma of uterus, unspecified; I10 Essential (primary) hypertension; N92.1 Excessive and frequent menstruation with irregular cycle
CPT/HCPCS: 36415; 71045-TC; 80048-TC; 80053-TC; 80305; 81000-TC; 82248-TC; 83605-TC; 84443-TC; 84703-TC; 85025-TC; 87040-TC; A4606; G0480; J1630; J2060; J3490; J7030; Z7610

== ENCOUNTER → 2018-04-15 | Emergency (ER) | payer MEDICAID ==
[~2018-04-15] VITALS: Ht 160 cm; Wt 76.7 kg
[~2018-04-15] MED LIST changes: -FERR-58 PO; +FERR325T23 PO; +IV NS 0.9% 1,000 ML BAG IV ONE; +IV NS 0.9% 1,000 ML IV ONE; +LORAZEPAM INJ 2 MG/ML VIAL IV ONE; +LORAZEPAM INJ 2 MG/ML VIAL ONE; +POTASSIUM CHLORIDE 20 MEQ TAB.PRT.SR PO ONE; +POTASSIUM CL. PREMIX PERIPHER. 50 ML ONE
--- NOTE | 2018-04-15 05:50 | NUR ---
PT C/O SI AND HI WITH PLAN TO HURT AND SON PER EMS REPORT. PT REFUSED TO ANSWER QUESTION WHEN ASKED. PT STATES "I DON'T KNOW WHY I'M HERE. I DON'T WANT TO TELL YOU ANYTHING. YOU'LL REGRET IT IF YOU MESS WITH ME." PT UNCOOPERATIVE. AWAITING ER MD MCKNIGHT. WILL CONTINUE TO MONITOR.
--- NOTE | 2018-04-15 06:25 | NUR ---
IV START RIGHT HAND 18G. IV END TIME 0725. LABS DRAWN AND GIVEN TO GUN STOCKER AT BEDSIDE. ATTEMPTED TO PUT PT ON BEDPAN FOR URINE SAMPLE. PT UNCOOPERATIVE AND YELLING.
[2018-04-15 06:32] LABS: BASOPHILS % (AUTO) 0.2 % (0.0-2.0); HEMATOCRIT 40 % (33-45); HEMOGLOBIN 12.9 g/dL (11.5-14.8); LYMPHOCYTES # (AUTO) 1.2 /CMM (0.8-4.8); LYMPHOCYTES % (AUTO) 8.3 % (20.0-44.0); MEAN CORPUSCULAR HEMOGLOBIN 29 PG (26.0-33.0); MEAN CORPUSCULAR HGB CONC 33 g/dl (31.0-36.0); MEAN CORPUSCULAR VOLUME 90 fL (82-100); MONOCYTES # (AUTO) 1.4 /CMM (0.1-1.30); MONOCYTES % (AUTO) 10.1 % (2.0-12.0); NEUTROPHILS # (AUTO) 11.5 /CMM (1.8-8.9); NEUTROPHILS % (AUTO) 81.4 % (43.0-81.0); PLATELET COUNT (AUTO) 335 /CMM (150-450); RDW COEFFICIENT OF VARIATION 12.4 (11.5-15.0); WHITE BLOOD COUNT (AUTO) 14.1 K/uL (4.3-11.0)
[2018-04-15 06:49] LABS: CALCIUM, SERUM 9.7 mg/dL (8.5-10.1); CARBON DIOXIDE 27 mmol/L (21-32); CHLORIDE 93 mmol/L (98-107); GLUCOSE 163 mg/dL (74-106); POTASSIUM 2.9 mmol/L (3.5-5.1); SODIUM SERUM 133 mmol/L (136-145); UREA NITROGEN, BLOOD 8 mg/dL (7-18)
[2018-04-15 07:01] LABS: ALANINE AMINOTRANSFERASE 27 U/L (12-78); ALBUMIN 4.1 g/dL (3.4-5.0); ALCOHOL, BLOOD < 3 mg/dL (0-0); ALKALINE PHOSPHATASE 79 U/L (46-116); ASPARTATE AMINOTRANSFERASE 22 U/L (15-37); BILIRUBIN,DIRECT 0.1 mg/dL (0.0-0.2); BILIRUBIN,TOTAL 0.4 mg/dL (0.2-1.0); TOTAL PROTEIN, SERUM 8.8 g/dL (6.4-8.2)
[2018-04-15 07:05] LABS: ACETAMINOPHEN 0 ug/ml (10-30); SALICYLATE 1.8 mg/dL (2.8-20.0)
--- NOTE | 2018-04-15 07:17 | NUR ---
PT TALKING TO HERSELF. PT COMBATIVE AND KICKING. PT MEDICATED PER MD ORDER.
--- NOTE | 2018-04-15 07:35 | NUR ---
PT'S AT BS AND UPDATED WITH POC.
--- NOTE | 2018-04-15 07:50 | NUR ---
PT'S - LEWIS DELGADO -
--- NOTE | 2018-04-15 08:00 | NUR ---
RECIEVED PT FROM JONO PHOTOGRAPHIC PROCESS ATTENDANT RN. PT PERINOID REFUSING TO HAVE PIV FLUSHED AND STATING I KNOW THE LAW YOU HAVE TO PAY ME OVER TIME. AWARE AND CAME TO BED SIDE AFTER PT WAS YELLING. PT REFUSED PO POTASSIUM MD AWARE. PT TO BE TRANSFERRED TO OUT SIDE FACILITY FOR PSYCH EVALUATION.
[2018-04-15] MEDS: POTASSIUM CL. PREMIX PERIPHER. 50 ML IV SCH ×2 (08:30→09:31)
--- NOTE | 2018-04-15 09:03 | NUR ---
CALLED MARQUES SALINAS FOR PSYCH EVAL. UNABLE TO REACH. LEFT MESASGE ON VOICEMAIL.
--- NOTE | 2018-04-15 09:16 | NUR ---
MARQUES RN CALLED BACK EN ROUTE 45-60 MIN
[2018-04-15 10:31] LABS: APPEARANCE,URINE Clear (CLEAR); BILIRUBIN,URINE Negative (NEGATIVE); BLOOD, URINE Small Ery/uL (NEGATIVE); COLOR,URINE Yellow (YELLOW); KETONES,URINE Negative (NEGATIVE); LEUKOCYTE ESTERASE ,URINE Trace (NEGATIVE); NITRITE, URINE Positive (NEGATIVE); PROTEIN,URINE Negative (NEGATIVE); UGLUCOSE Negative (NEGATIVE); UROBILINOGEN,URINE 0.2 EU/dL (0.2)
--- NOTE | 2018-04-15 10:32 | NUR ---
PT HAD BED CHANGE URINATED OVER SELF WHEN USING BED HANEY URINE SAMPLE SENT TO [facility] PT GIVEN MEAL BUT REFUSED. PT REMOVED FROM RESTRAINGHTS. PSYCH EVALUATION NURSE AT BED SIDE.
[2018-04-15 10:44] LABS: BACTERIA,URINE Many /HPF (None Seen); SQUAMOUS EPITHELIAL CELL,UR Few /HPF (None Seen)
[2018-04-15 11:32] VITALS: BP 108/56
--- NOTE | 2018-04-15 11:37 | NUR ---
PT DISCHARGED TO HOME WITH SPOUSE GIVEN PRESCRIPTION WILL F/U WITH PSYCHOLOGICAL CARE
--- NOTE | 2018-04-16 14:46 | NUR ---
ALL FOUR BAGS OF POSTASSIUM IV GIVEN
== END | disposition home or self-care (01) ==
LOC: ER 05:37
DX: F23 Brief psychotic disorder (principal); E87.6 Hypokalemia; D25.9 Leiomyoma of uterus, unspecified; N92.1 Excessive and frequent menstruation with irregular cycle; I10 Essential (primary) hypertension; N39.0 Urinary tract infection, site not specified; R30.0 Dysuria
CPT/HCPCS: 36415; 80048; 80076; 80305; 80329; 81001; 84703; 85025; 87086; 87186; 96365; 96375; 99284; A4606; G0480 ×2; J2060; J3480 ×4; J7030; Z7610; 81000-TC

== ENCOUNTER 2019-07-04 23:34 | Emergency (ER) | payer MEDICAID ==
[~2019-07-04] VITALS: Ht 160 cm; Wt 66.7 kg
[~2019-07-04 23:34] MED LIST changes: -AMLO5TAB2 PO; +AMLO5TAB9 PO; -IV NS 0.9% 1,000 ML BAG IV ONE; -IV NS 0.9% 1,000 ML IV ONE; -LORAZEPAM INJ 2 MG/ML VIAL IV ONE; -LORAZEPAM INJ 2 MG/ML VIAL ONE; -POTASSIUM CHLORIDE 20 MEQ TAB.PRT.SR PO ONE; -POTASSIUM CL. PREMIX PERIPHER. 50 ML ONE
--- NOTE | 2019-07-04 23:44 | NUR ---
"BIBFAMILY S/P SYNCOPE X1HR PT. +DIZZNESS, +HEAD INJURY " PT TO BED 5, PT ON MONITOR, -SOB, VSS, PENDING MD MCKNIGHT
[2019-07-04 23:55] LABS: BASOPHILS # (AUTO) 0.1 /CMM (0.0-0.2); BASOPHILS % (AUTO) 0.7 % (0.0-2.0); EOSINOPHILS % (AUTO) 0.7 % (0.0-6.0); HEMATOCRIT 37 % (33-45); HEMOGLOBIN 12.7 g/dL (11.5-14.8); LYMPHOCYTES # (AUTO) 3.4 /CMM (0.8-4.8); LYMPHOCYTES % (AUTO) 39.7 % (20.0-44.0); MEAN CORPUSCULAR HGB CONC 34 g/dl (31.0-36.0); MEAN CORPUSCULAR VOLUME 90 fL (82-100); MONOCYTES # (AUTO) 0.8 /CMM (0.1-1.30); MONOCYTES % (AUTO) 9.7 % (2.0-12.0); NEUTROPHILS # (AUTO) 4.2 /CMM (1.8-8.9); NEUTROPHILS % (AUTO) 49.2 % (43.0-81.0); PLATELET COUNT (AUTO) 230 /CMM (150-450); RED BLOOD CELL COUNT(AUTO) 4.13 MIL/uL (4.0-5.2); WHITE BLOOD COUNT (AUTO) 8.5 K/uL (4.3-11.0)
[2019-07-05] MEDS ORDERED: IV NS 0.9% 500 ML BAG IV ONE
[2019-07-05 00:03] LABS: CALCIUM, SERUM 9.1 mg/dL (8.5-10.1); CARBON DIOXIDE 26 mmol/L (21-32); CHLORIDE 92 mmol/L (98-107); CREATININE 0.9 mg/dL (0.6-1.3); GLUCOSE 184 mg/dL (74-106); POTASSIUM 3.5 mmol/L (3.5-5.1); SODIUM SERUM 131 mmol/L (136-145); UREA NITROGEN, BLOOD 10 mg/dL (7-18)
[2019-07-05 00:23] LABS: ALANINE AMINOTRANSFERASE 21 U/L (12-78); ALBUMIN 3.9 g/dL (3.4-5.0); ALKALINE PHOSPHATASE 42 U/L (46-116); ASPARTATE AMINOTRANSFERASE 18 U/L (15-37); BILIRUBIN,DIRECT 0.1 mg/dL (0.0-0.2); BILIRUBIN,TOTAL 0.4 mg/dL (0.2-1.0); TOTAL PROTEIN, SERUM 7.4 g/dL (6.4-8.2)
--- NOTE | 2019-07-05 00:39 | NUR ---
PT IN BED RESTING, VSS, PT ON MONITOR, -SOB, VS UPDATED
[2019-07-05 01:44] VITALS: BP 92/67
--- NOTE | 2019-07-05 01:58 | NUR ---
IV removed. Catheter intact and site benign. Pressure and 4x4 applied to site. No bleeding noted.Patient discharged to home in stable condition. Written and verbal after care instructions given TO PATIENT AND SON. Patient verbalizes understanding of instruction.
== END 2019-07-05 02:01 | disposition home or self-care (01) ==
LOC: ER 23:37
DX: R55 Syncope and collapse (principal); I10 Essential (primary) hypertension; D64.9 Anemia, unspecified; Z90.710 Acquired absence of both cervix and uterus; Z79.899 Other long term (current) drug therapy
CPT/HCPCS: 36415; 70450-TC; 71045-TC; 80048-TC; 80076-TC; 82962-TC; 84484-TC; 85025-TC; J7040